=== PATIENT | female | born 1980 | race Hispanic/Latino ===

== ENCOUNTER 2017-05-01 02:08 | Inpatient (IN) | payer MEDICAID, OTHER, SELFPAY ==
[2017-05-01] MEDS ORDERED: Lidocaine 1% (PF) 30 ML VIAL ONE (02:29)
[2017-05-01] MEDS ORDERED: LR / Pitocin 40 units/1000 ml 1,000 ML ONE (02:29)
[2017-05-01] MEDS ORDERED: Promethazine HCl 25 MG/ML VIAL IM PRN (02:36)
[2017-05-01] MEDS ORDERED: Acetaminophen 500 MG TAB PO PRN (02:36)
[2017-05-01] MEDS ORDERED: Ondansetron HCl/PF 4 MG/2 ML Vial IVP PRN (02:36)
--- NOTE | 2017-05-01 02:48 | PDOC.EVN ---
Event Note - Event Note Event Note: History and Physical Patient of the cliniic, first accessed by Gerard Caballero (Resident). HPI: Patient is a 36 YO at 38 weeks and 2 days with spont onset of labor. SROM at 0245. Admitted at 6cm. Review of systems: negative except as per HPI Past medical HX: neg Social: negative OB HX: pror SVDs, GDM- diet controlled with this Physical exam: Vitals wnl EFW 7# CX 6//c/+1 Monitor: Cat 1 Assessment: GDM, active labor at term Plan: 1. Check Dstick 2. Await delivery
[2017-05-01 02:55] LABS: Hemoglobin 12.2 g/dL (12.0-16.0); Mean Corpuscular HGB CONC 32.5 g/dL (32.0-36.0); Mean Corpuscular Hemoglobin 26.1 pg (27.0-31.0); Mean Corpuscular Volume 80.4 fl (81.0-99.0); Platelet Count 247 thou/uL (130-400); Red Blood Cell (RBC) Count 4.69 mill/uL (4.20-5.40); White Blood Cell (WBC) Count 11.3 thou/uL (4.8-10.8)
[2017-05-01 03:04] VITALS: BMI 34.5
--- NOTE | 2017-05-01 03:15 | PDOC.OPDEL ---
OB Operative/Delivery Note Delivery Dr/Surgeon: Chanel/Reed/Farooq Assist: Farooq Pre-Delivery Diagnosis: active labor Procedure/Post Delivery Dx: spontaneous vaginal delivery Weeks gestation: 38 Anesthesia: local - Additional Findings/Plan Placenta delivered: spontaneous Repaired Obstetrical Laceration: 2nd degree (Repaired by Chanel under my supervision. 2-0 chroic used, under 10ml local anesthesia.) Estimated blood loss: 200 Compilations/Other Findings: Vigorous female. No nuchal cord. Counts correct. No resus needed. Post delivery plan: routine recovery
[2017-05-01 03:31] LABS: HBSAg Index 0.22 S/CO (0-0.99); Hep B Surf Ag Non-Reactive S/CO (NonReactive)
[2017-05-01] MEDS ORDERED: Benzocaine/Menthol 20-0.5% 60 ML CAN TOP PRN (05:35)
[2017-05-01] MEDS ORDERED: Bisacodyl 10 MG SUPP PR PRN (05:35)
[2017-05-01] MEDS ORDERED: Milk Of Magnesia 30 ML UDCUP PO PRN (05:35)
[2017-05-01] MEDS ORDERED: LR / Pitocin 40 units/1000 ml 1,000 ML IV SCH (05:35)
[2017-05-01] MEDS ORDERED: Adacel (T-DAP) 0.5 ML VIAL IM ONE (05:35)
[2017-05-01] MEDS ORDERED: Lanolin Ointment 7 GM TUBE TOP PRN (05:35)
[2017-05-01] MEDS: Ibuprofen 800 MG TAB PO SCH ×3 (05:51→22:08)
[2017-05-01] MEDS: Lactated Ringer's 1,000 ML IV SCH ×2 (05:52→17:13)
[2017-05-01 06:40] LABS: Syphilis Antibody Nonreactive (Nonreactive)
--- NOTE | 2017-05-01 07:16 | PDOC.PP ---
Post Progress Note Post Day #: 0 Subjective: Resting. Doing well. PO intake tolerated: yes Flatus: yes Ambulation: yes Vital Signs (12 hours) Temp Pulse Resp BP 05/01/17 06:27 97.5 F L 63 18 115/63 05/01/17 05:23 98.0 F 61 18 113/70 05/01/17 02:40 97.5 F L 65 22 H Weight Weight 189 lb - Physical Examination General: NAD Cardiovascular: no m/r/g Abdominal: + bowel sounds Neurological: no gross focal deficits Psychiatric: A&Ox3, normal affect Result Diagrams: 05/01/17 02:40 Additional Labs: Post Labs Hep Bs Antigen Non-Reactive S/CO (NonReactive) 05/01/17 02:40 (1) Second degree perineal laceration Code(s): O70.1 - SECOND DEGREE PERINEAL LACERATION DURING DELIVERY Status: Acute (2) Gestational diabetes mellitus, delivered Code(s): O24.429 - GESTATIONAL DIABETES MELLITUS IN CHILDBIRTH, UNSP CONTROL Status: Acute (3) Spontaneous Vaginal Delivery Code(s): O80 - ENCOUNTER FOR FULL-TERM UNCOMPLICATED DELIVERY Status: Acute - Assessment/Plan Doing well s/p Precipitous at approx 0300 today. Routine care for now. HX GDM, diet controlled. Will need GTT in 6 weeks.
[2017-05-01] MEDS: Docusate Calcium (SURFAK) 240 MG CAP PO SCH ×2 (07:36→22:09)
[2017-05-01] MEDS: Prenatal Vitamin 1 TAB PO SCH (07:36)
[2017-05-01] MEDS: HYDROcodone/Acetaminophen 5/325 mg Tablet PO PRN ×2 (07:36→11:44)
--- NOTE | 2017-05-01 08:35 | PDOC.PP ---
Post Progress Note Post Day #: 1 Subjective: 36 yo -->3 @ 38.2 wks now s/p on 05/01 @ ~ 0300 with meconium stained fluid and a second degree laceration, repaired and hemostatic. Endorses pain this morning. States she is voiding on her own and ambulating to the bathroom. She was about to eat breakfast this morning. Denies passing flatus. Flatus: no Ambulation: yes Vital Signs (12 hours) Temp Pulse Resp BP 05/01/17 07:45 97.9 F 61 20 116/66 05/01/17 06:27 97.5 F L 63 18 115/63 05/01/17 05:23 98.0 F 61 18 113/70 05/01/17 02:40 97.5 F L 65 22 H Weight Weight 85.729 kg - Physical Examination General: NAD Cardiovascular: no m/r/g, RRR Respiratory: clear to auscultation bilaterally Abdominal: + bowel sounds, lochia, no distention Neurological: no gross focal deficits Psychiatric: A&Ox3, normal affect Result Diagrams: 05/01/17 02:40 Additional Labs: Post Labs Hep Bs Antigen Non-Reactive S/CO (NonReactive) 05/01/17 02:40 (1) Spontaneous Vaginal Delivery Code(s): O80 - ENCOUNTER FOR FULL-TERM UNCOMPLICATED DELIVERY Status: Acute Comment: 36 yo -->3 at 38.2wks now s/p to a TAGA female, at 0249 on , positive mec, unknown GBS. No indication at this time for antibiotics. Continue routine care. Will encourage PO intake, ambulation. Voiding adequately. (2) Gestational diabetes mellitus, delivered Code(s): O24.429 - GESTATIONAL DIABETES MELLITUS IN CHILDBIRTH, UNSP CONTROL Status: Acute Comment: Diet controlled. Will monitor blood glucose. Prior Hba1c 5.8% (3) Second degree perineal laceration Code(s): O70.1 - SECOND DEGREE PERINEAL LACERATION DURING DELIVERY Status: Acute Comment: Repaired. Hemostatic. Will continue to monitor.
[2017-05-01] MEDS ORDERED: Acetaminophen 325 MG TAB PO PRN (10:40)
[2017-05-01] MEDS: Ferrous Sulfate 325 MG TAB PO SCH (17:13)
[2017-05-02] MEDS: HYDROcodone/Acetaminophen 5/325 mg Tablet PO PRN (02:25)
[2017-05-02 06:00] LABS: Hemoglobin 10.4 g/dL (12.0-16.0); Mean Corpuscular HGB CONC 31.5 g/dL (32.0-36.0); Mean Corpuscular Hemoglobin 25.9 pg (27.0-31.0); Mean Corpuscular Volume 82.3 fl (81.0-99.0); Mean Platelet Volume 7.9 fL (7.4-10.4); Platelet Count 229 thou/uL (130-400); RBC Distribution Width 14.9 % (11.5-14.5); Red Blood Cell (RBC) Count 4.03 mill/uL (4.20-5.40); White Blood Cell (WBC) Count 9.7 thou/uL (4.8-10.8)
[2017-05-02] MEDS: Ibuprofen 800 MG TAB PO SCH ×2 (06:40→13:59)
[2017-05-02] MEDS: Lactated Ringer's 1,000 ML IV SCH (06:41)
[2017-05-02 08:32] VITALS: BP 106/58; TEMP 97.7
[2017-05-02] MEDS: Ferrous Sulfate 325 MG TAB PO SCH (08:55)
[2017-05-02] MEDS: Docusate Calcium (SURFAK) 240 MG CAP PO SCH (08:56)
[2017-05-02] MEDS: Prenatal Vitamin 1 TAB PO SCH (08:56)
[2017-05-02] MEDS ORDERED: FLU VACC QS2017-18 36 mo. & older 0.5 ML SYRINGE IM ONE (09:00)
== END 2017-05-02 15:45 | disposition home or self-care (01) | DRG 775 ==
LOC: L&D/OP 02:08 → L&D 02:35 → 3SW 05:20
PROVIDERS: ADMIT Obstetrics & Gynecology; ATTEND Obstetrics & Gynecology
PROC: 10E0XZZ Delivery of Products of Conception, External Approach (ICD-10-PCS; principal; 2017-05-01)
PROC: 0KQM0ZZ Repair Perineum Muscle, Open Approach (ICD-10-PCS; 2017-05-01)
DX: O24.420 Gestational diabetes mellitus in childbirth, diet controlled (principal); O70.1 Second degree perineal laceration during delivery; Z37.0 Single live birth; Z3A.38 38 weeks gestation of pregnancy
CPT/HCPCS: 36415; 85027; 86780; 87340; 99285; J2001

== ENCOUNTER 2019-12-02 00:19 | Observation (INO) | payer OTHER, SELFPAY ==
[2019-12-02 01:06] LABS: #Eosinphils 0.1 thou/uL (0.0-0.7); #Lymphocytes 2.4 thou/uL (1.20-3.40); #Monocytes 0.5 thou/uL (0.11-0.59); #Neutrophils 6.2 thou/uL (1.40-6.50); %Basophils 0.5 % (0.0-1.0); %Eosinophils 1.1 % (0.0-10.0); %Lymphocytes 25.8 % (21.0-51.0); %Monocytes 5.4 % (0.0-10.0); %Neutrophils 67.2 % (42.0-75.0); Hemoglobin 13.4 g/dL (12.0-16.0); Mean Corpuscular HGB CONC 33.6 g/dL (32.0-36.0); Mean Corpuscular Hemoglobin 27.7 pg (27.0-31.0); Mean Corpuscular Volume 82.5 fL (78.0-98.0); Mean Platelet Volume 7.1 fL (7.4-10.4); Platelet Count 276 thou/uL (130-400); RBC Distribution Width 12.5 % (11.5-14.5); Red Blood Cell (RBC) Count 4.81 mill/uL (4.20-5.40); White Blood Cell (WBC) Count 9.2 thou/uL (4.8-10.8)
[2019-12-02] MEDS ORDERED: Acetaminophen 500 MG TAB ONE (02:10)
[2019-12-02 02:16] LABS: Blood, Urine Large (Negative); Protein, Urine (Dipstick) > or equal to 300 mg/dL (Neg-Trace)
[2019-12-02 02:35] LABS: Clarity Hazy (Clear); Leukocyte Unable to Interpret (Negative); Specific Gravity, Urine 1.018 (1.002-1.036); pH, Urine 6.8 (5.0-9.0)
[2019-12-02 02:38] LABS: Bilirubin Moderate (Negative)
[2019-12-02 02:39] LABS: Glucose, Urine (Dipstick) Unable to Interpret mg/dL (Negative)
[2019-12-02 02:41] LABS: Nitrite Unable to Interpret (Negative)
[2019-12-02 02:42] LABS: Ketone, Urine Moderate mg/dL (Negative)
[2019-12-02 02:50] LABS: RBC/HPF Greater than 50 HPF (0-3)
[2019-12-02 02:52] LABS: Bacteria/HPF 1+ HPF (None Seen); Squamous Epithelial 0-3 HPF (0-3)
[2019-12-02] MEDS ORDERED: Misoprostol 200 MCG TAB VAG SCH (03:00)
[2019-12-02] MEDS ORDERED: Acetaminophen/Codeine 30-300mg Tablet PO PRN ×2 (04:12→05:07)
[2019-12-02] MEDS ORDERED: cefTRIAXone\\ROCEPHIN 2 GM in Sodium Chloride 0.9% 100 ML IVPB SCH (04:15)
[2019-12-02] MEDS ORDERED: Lactated Ringer's 1,000 ML IV SCH (04:15)
[2019-12-02] MEDS ORDERED: Misoprostol 200 MCG TAB ONE (04:22)
[2019-12-02 04:27] LABS: #Lymphocytes 2.7 thou/uL (1.20-3.40); #Monocytes 0.4 thou/uL (0.11-0.59); #Neutrophils 7.4 thou/uL (1.40-6.50); %Basophils 0.2 % (0.0-1.0); %Eosinophils 0.2 % (0.0-10.0); %Lymphocytes 25.4 % (21.0-51.0); %Monocytes 4.1 % (0.0-10.0); %Neutrophils 70.1 % (42.0-75.0); Hemoglobin 10.9 g/dL (12.0-16.0); Mean Corpuscular HGB CONC 32.9 g/dL (32.0-36.0); Mean Corpuscular Volume 82.1 fL (78.0-98.0); Mean Platelet Volume 7.2 fL (7.4-10.4); Platelet Count 282 thou/uL (130-400); RBC Distribution Width 12.3 % (11.5-14.5); Red Blood Cell (RBC) Count 4.05 mill/uL (4.20-5.40); White Blood Cell (WBC) Count 10.6 thou/uL (4.8-10.8)
[2019-12-02] MEDS ORDERED: Fentanyl 100 MCG/2 ML VIAL ONE ×2 (04:31→05:28)
[2019-12-02] MEDS ORDERED: Midazolam HCl 2 mg/2 ml Vial ONE (04:31)
--- NOTE | 2019-12-02 04:48 | HP ---
TIME: 040, the time of evaluation was around 0345. REASON FOR ADMISSION: Incomplete with heavy vaginal bleeding and syncopal like episode. LOCATION: Currently in ER bed 11. HISTORY OF PRESENT ILLNESS: This is a 39-year-old G4, P3 with 3 vaginal deliveries in the past, who states that she may have been anywhere from 10 to 12 weeks , but had not yet seen a provider for this . She comes in now for vaginal bleeding. As I was in Labor and Delivery attending to other acute patients, I requested Cytotec to be given to see if that could complete the process. I was called down stat about 10 minutes prior to my arrival in the ER because after the Cytotec had been placed, the patient stated that she had a large pelvic cramp and then the patient had an episode of bradycardia and syncopal episode. This was followed by questionable seizure activity. PAST MEDICAL HISTORY: No diabetes, no asthma. PAST SURGICAL HISTORY: Noncontributory. OB HISTORY: She has had three vaginal deliveries in the past. PHYSICAL EXAMINATION: Patient is diaphoretic and pale, but in no acute distress. She is oriented to time and place. I performed a bimanual exam and I was able to draw out about 150 to 200 mL of clot. Her cervix still feels to be open, about 1 cm by my finger palpation. I did see some Cytotec tablets in the clots that were expelled. LABORATORY DATA: Initial H and H were 13 and 39. Ultrasound revealed that she had some echogenic material in the uterus compatible with retained products. This was before the Cytotec was placed. ASSESSMENT: This is a patient with incomplete AB with a questionable bradycardic episode and possible syncope of unknown etiology. The patient states that she had a large pelvic cramp and then felt faint. This may have been vagally mediated from the cytotec uterine cramping.. PLAN: 1. I have discussed a D and C with the patient to make sure that there is no further bleeding. 2. We will keep the patient for inpatient observation, follow H and H. 3. Unsure what this bradycardic episode was, but it may have been a pain response to the cramp from Cytotec. I obtained informed consent in bhutanese. Job ID: [id number] MTDD
[2019-12-02] MEDS ORDERED: cefTRIAXone\\ROCEPHIN 1 GM VIAL ONE (04:53)
[2019-12-02] MEDS ORDERED: Ibuprofen 800 MG TAB PO PRN (05:09)
--- NOTE | 2019-12-02 05:12 | PDOC.BPN ---
- Brief Progress Note BRIEF OP NOTE D&C complete. POC seen expelling via dilated CX OS. No complications. Last HCT was 33 from 39 See D&C Dictation
--- NOTE | 2019-12-02 07:04 | OP ---
DATE OF PROCEDURE: 12/02/2019 PREOPERATIVE DIAGNOSES: 1. Suspected incomplete 1st trimester . 2. Syncopal episode in the emergency department. POSTOPERATIVE DIAGNOSES: 1. Suspected incomplete 1st trimester . 2. Status post dilation and curettage, and evacuation of clots/products of conception. PROCEDURE: 1. Suction dilation and curettage. 2. Evacuation of clots through the cervical os, which was dilated. FILTER HELPER: None. ANTIBIOTICS: Rocephin 1 g IV. FINDINGS: 1. There were active clots being passed in the vagina during the patient's prep. 2. When I placed the Graves bivalve speculum into the vagina, the cervix was dilated and there were products of conception seen through the cervical os. Next, these products were evacuated with ring forceps and sent to pathology. 3. D and C was then done for 3 passes with no further tissue extracted, but scant amount. The EBL was about 200 mL, which represented the clots that were in the vagina and through the cervix. The EBL during the D and C itself was minimal. IV FLUIDS: About 200 mL crystalloid. COMPLICATIONS: None. COUNTS: Correct. PATHOLOGY: Uterine contents. DISPOSITION: To recovery room. DESCRIPTION OF PROCEDURE: After proper informed consent was explained to the patient, she was taken to OR D for her D and C. She was placed under general endotracheal anesthesia and she was positioned in [facility]. All pressure points were adequately padded and supported. The patient's vulva and vagina were prepped and draped in the usual sterile fashion. It is during this vaginal prep that clots were expressed from the vagina. I then placed a [employer] bivalve speculum to the vagina and I saw that the cervix was dilated grossly with a lot of clot and products of conception grossly visible being extruded. These were evacuated by rings and sent to pathology. After these clots and tissue were evacuated, I performed the D and C with a #8 curved plastic curette in the typical fashion. No evidence of perforation was found. A scant amount of tissue was removed from the uterine cavity. Noting hemostasis and no further bleeding, we stopped the procedure. The D and C procedure itself was only about 1 to 2 minutes. We then took her down from the dorsal lithotomy position where we will follow her for the day. It is important to note that her last hematocrit had dropped from 39 to 33. We will check another one at about 3 p.m. Job ID: [id number]
--- NOTE | 2019-12-02 07:47 | ULT ---
PRELIMINARY REPORT/[facility]/EMERGENCY AFTER HOURS PROCEDURE EXAM: US Pelvis, Complete. CLINICAL HISTORY: HX: VERY HEAVY VAG BLEEDING AT APPROX 12WKS. SEE NOTES ON LAST IMAGE. THANKS TECHNIQUE: Transvaginal and transabdominal pelvic ultrasound (complete) with image documentation. COMPARISON: None provided. FINDINGS: ENDOMETRIUM: Appears thickened at 22 mm demonstrating increased flow. UTERUS/CERVIX: Normal size and contour. No fibroid detected. Measures 14.2 x 5.5 x 6.5 cm. The cervical os appears to be open RIGHT OVARY: Normal follicles. No adnexal mass. Normal blood flow. Measures 1.8 x 1.4 x 1.6 cm LEFT OVARY: Normal follicles. No adnexal mass. Normal blood flow. Measures 1.8 x 1.6 x 3.4 cm FREE FLUID: No free fluid. IMPRESSION: Thickened vascular endometrium with an open cervical os ELECTRONICALLY SIGNED BY: Tino Calzada MD Dec 02, 2019 2:46:42 AM CDT This report is intended for review by the ordering physician only, in accordance of law. If you recei ve this report in error, please call [facility] at [phone]. FINAL REPORT US Pelvic Transvag History: Pelvic pain. Vaginal bleeding. 12 weeks Comparison: None. Findings and Impression: Concordant with the preliminary report. No intrauterine chandu oh Transcribed Date/Time: 12/02/2019 7:50 AM
--- NOTE | 2019-12-02 08:18 | PDOC.BPN ---
- Brief Progress Note Pulse 78 per RN now RN has called Dr Bundy about a syncope episode. I am, here as well in check out, Stat HH ordered now
[2019-12-02 08:37] LABS: Hemoglobin 8.9 g/dL (12.0-16.0)
[2019-12-02 09:22] VITALS: BMI 29.9
[2019-12-02] MEDS ORDERED: PROPOFOL 200 MG/20 ML VIAL ONE (09:26)
[2019-12-02] MEDS ORDERED: Succinylcholine Chloride 20 MG/ML 10 ml SYRINGE FS ONE (09:26)
[2019-12-02] MEDS ORDERED: Ondansetron PF 4 MG/2 ML Vial ONE (09:26)
[2019-12-02] MEDS ORDERED: Lidocaine 1% PF 5 ML VIAL ONE (09:26)
[2019-12-02 14:28] LABS: Hemoglobin 7.9 g/dL (12.0-16.0)
[2019-12-02] MEDS: Lactated Ringer's 1,000 ML IV SCH (14:58)
[2019-12-02 15:04] LABS: SARS-CoV-2 MS2 Positive; SARS-CoV-2 N Gene Negative; SARS-CoV-2 S Gene Negative; SARS-CoV-2 by NAA Not Detected (NotDetected); SARS-CoV-2 orf1ab Negative
[2019-12-02 17:16] VITALS: TEMP 98.2
[2019-12-02 17:22] LABS: Hemoglobin 8.1 g/dL (12.0-16.0)
[2019-12-02 17:33] VITALS: BP 118/74
--- NOTE | 2019-12-02 17:48 | PDOC.EVN ---
Event Note - Event Note Event Note: Feeling better, no further dizziness, no ESCALANTE. VSS, AF. BP= 118/74, P= 82. No significant vaginal bleeding. Hgbs this PM; 7.9 to 8.1. Plan: DC home with Precautions and and with Fe. [facility] in 2 weeks.
== END 2019-12-02 18:20 | disposition home or self-care (01) ==
LOC: ERS 00:19 → 3SW 06:48
PROVIDERS: ADMIT Obstetrics & Gynecology; ATTEND Obstetrics & Gynecology
PROC: 10A08ZZ Abortion of Products of Conception, Via Natural or Artificial Opening Endoscopic (ICD-10-PCS; principal; 2019-12-02)
DX: O03.4 Incomplete spontaneous abortion without complication (principal)
CPT/HCPCS: 36415; 36416; 51702; 76856; 81003; 81015; 84702; 85025; 86850; 86900; 86901; 87635; 88305; 93005; 96360; 96361; G0378; J0696; J2250; J2405; J2704; J3010; U0003

== ENCOUNTER 2019-12-05 21:29 | Emergency (ER) | payer OTHER, SELFPAY ==
[2019-12-05 22:14] LABS: Bilirubin Negative (Negative); Blood, Urine 1+ (Negative); Clarity Clear (Clear); Glucose, Urine (Dipstick) Normal (Negative); Ketone, Urine Negative (Negative); Leukocyte Negative Leu/uL (Negative); Nitrite Negative (Negative); Protein, Urine (Dipstick) Negative (Neg-Trace); RBC/HPF 0-3 HPF (0-3); Squamous Epithelial 0-3 HPF (0-3); Urobilinogen Normal mg/dL (Less than 2); WBC/HPF 0-3 HPF (0-3); pH, Urine 6.5 (5.0-9.0)
[2019-12-05 22:15] LABS: Bacteria/HPF 1+ HPF (None Seen); Specific Gravity, Urine 1.004 (1.002-1.036)
[2019-12-05] MEDS ORDERED: Sodium Chloride 0.9% 100 ML ONE (22:22)
[2019-12-05] MEDS ORDERED: Piperacillin/Tazobactam 3.375 GM VIAL ONE (22:22)
[2019-12-05] MEDS ORDERED: diphenhydrAMINE 50 MG/ML VIAL ONE (22:22)
[2019-12-05] MEDS ORDERED: Ketorolac Tromethamine 30 MG/ML VIAL ONE (22:22)
[2019-12-05] MEDS ORDERED: Metoclopramide HCl 10 MG/2 ML VIAL ONE (22:22)
[2019-12-05] MEDS ORDERED: Metoclopramide 10 MG/10 ML UDCUP ONE (22:22)
--- NOTE | 2019-12-05 22:27 | RAD ---
XR Chest 1 View Portable HISTORY: Weakness, headache COMPARISON: None FINDINGS: The heart size is normal. The lungs are well expanded without focal areas of consolidation, pneumothorax or pleural effusions. IMPRESSION: No radiographic evidence of acute cardiopulmonary process.
[2019-12-05 22:34] LABS: ALT (SGPT) 36 U/L (8-55); AST (SGOT) 27 U/L (5-34); Albumin 4.1 g/dL (3.5-5.0); Alkaline Phosphatase 65 U/L (40-110); Anion Gap 13 mmol/L (10-20); BUN (Urea Nitrogen) 6 mg/dL (7.0-18.7); Bilirubin, Total 0.2 mg/dL (0.2-1.2); Calc. Creatinine Clearance 0 mL/min (70-130); Calcium 8.6 mg/dL (7.8-10.44); Carbon Dioxide 22 mmol/L (22-29); Chloride 111 mmol/L (98-107); Estimated GFR-MDRD 81; Glucose 121 mg/dL (70-105); Magnesium 2.1 mg/dL (1.6-2.6); Protein, Total 7.1 g/dL (6.0-8.3); Sodium 142 mmol/L (136-145)
[2019-12-05 22:42] LABS: #Eosinphils 0.1 thou/uL (0.0-0.7); #Lymphocytes 2.3 thou/uL (1.20-3.40); #Monocytes 0.4 thou/uL (0.11-0.59); #Neutrophils 5.1 thou/uL (1.40-6.50); %Basophils 0.4 % (0.0-1.0); %Eosinophils 1.7 % (0.0-10.0); %Lymphocytes 28.5 % (21.0-51.0); %Monocytes 5.1 % (0.0-10.0); %Neutrophils 64.3 % (42.0-75.0); Hemoglobin 8.4 g/dL (12.0-16.0); Mean Corpuscular HGB CONC 32.6 g/dL (32.0-36.0); Mean Corpuscular Hemoglobin 27.1 pg (27.0-31.0); Mean Corpuscular Volume 83.3 fL (78.0-98.0); Platelet Count 299 thou/uL (130-400); RBC Morphology Normal; Red Blood Cell (RBC) Count 3.11 mill/uL (4.20-5.40)
--- NOTE | 2019-12-05 23:33 | ULT ---
TRANSABDOMINAL AND TRANSVAGINAL PELVIC ULTRASOUND WITH GRAYSCALE, COLOR-FLOW AND SPECTRAL DOPPLER MARK GING: HISTORY:Possible retained products of conception, pelvic pain, light vaginal spotting FINDINGS: Uterus: 12.3 x 4.3 x 6.9cm Endometrium: 8 mm in thickness Right ovary: 1.6 x 2.1 x 1.7cm Left ovary: 2.5 x 2 x 1.9 cm No uterine mass or endometrial fluid or intrauterine gestational sac is seen. Flow is demonstrated to both ovaries. No adnexal mass or free fluid in the cul-de-sac is identified. IMPRESSION: Unremarkable exam. Recommendation: Correlation with serial serum beta hCG levels and follow-up ultrasound is recommended
== END 2019-12-06 00:02 | disposition home or self-care (01) ==
LOC: ERS 21:29
DX: D64.9 Anemia, unspecified (principal); N39.0 Urinary tract infection, site not specified; Z79.899 Other long term (current) drug therapy
CPT/HCPCS: 36415; 71045; 76856; 80053; 81003; 81015; 83735; 84484; 85025; 86850; 86900; 86901; 87040; 87086; 87149; 93005; 93976; 94760; 96365; 96368; 96375; J1200; J1885; J2543; J2765; J3490

== ENCOUNTER 2020-06-23 17:20 | Emergency (ER) | payer MEDICAID, OTHER, SELFPAY ==
[2020-06-23 18:59] LABS: #Basophils 0.1 thou/uL (0.0-0.2); #Lymphocytes 2.1 thou/uL (1.20-3.40); #Monocytes 0.4 thou/uL (0.11-0.59); #Neutrophils 4.7 thou/uL (1.40-6.50); %Basophils 0.9 % (0.0-1.0); %Eosinophils 0.6 % (0.0-10.0); %Lymphocytes 28.5 % (21.0-51.0); %Monocytes 4.9 % (0.0-10.0); %Neutrophils 65.2 % (42.0-75.0); Hemoglobin 13.1 g/dL (12.0-16.0); Mean Corpuscular HGB CONC 32.7 g/dL (32.0-36.0); Mean Corpuscular Hemoglobin 26.5 pg (27.0-31.0); Mean Platelet Volume 7.6 fL (7.4-10.4); Platelet Count 235 thou/uL (130-400); RBC Distribution Width 13.1 % (11.5-14.5); Red Blood Cell (RBC) Count 4.95 mill/uL (4.20-5.40); White Blood Cell (WBC) Count 7.3 thou/uL (4.8-10.8)
[2020-06-23 19:11] LABS: BHCG - Serum POSITIVE (NEGATIVE); Pregs Control Background? CLEAR/WHITE (CLR/WHITE); Pregs Control Bar Appear? YES (CONTROL BAR)
[2020-06-23 19:15] LABS: ALT (SGPT) 93 U/L (8-55); AST (SGOT) 69 U/L (5-34); Albumin 4.3 g/dL (3.5-5.0); Alkaline Phosphatase 81 U/L (40-110); Anion Gap 15 mmol/L (10-20); BUN (Urea Nitrogen) 6 mg/dL (7.0-18.7); Bilirubin, Total 0.4 mg/dL (0.2-1.2); Calc. Creatinine Clearance 0 mL/min (70-130); Carbon Dioxide 21 mmol/L (22-29); Chloride 108 mmol/L (98-107); Globulin 3.8 g/dL (2.4-3.5); Glucose 99 mg/dL (70-105); Potassium 3.7 mmol/L (3.5-5.1); Protein, Total 8.1 g/dL (6.0-8.3); Sodium 140 mmol/L (136-145)
--- NOTE | 2020-06-23 19:16 | ULT ---
FIRST TRIMESTER OBSTETRICAL ULTRASOUND INDICATION: Positive home test with vaginal bleeding TECHNIQUE: Grayscale, M-mode Doppler, color Doppler and spectral Doppler images were obtained. Shahab godoy is focused on the clinical indication. Transabdominal and transvaginal exam was performed. COMPARISON: No relevant prior studies available. FINDINGS: Uterus: The uterus measured 8.9 x 3.7cm.The endometrial stripe measured 7.5 mm.r small hypoechoic density see n along the posterior aspect of the right uterine body measuring approximately 9 mm suspicious for a small subserosal fibroid. Intrauterine gestation: None. Yolk Sac:Not applicable Pole :Not applicable heart rate: Not applicable bpm. Subchorionic Hemorrhage: Not applicable BIOMETRY: Not applicable Ovaries: RIGHT OVARY: 1.7 x 2.4 x 1.1 cm. Mass: None. Flow: Normal LEFT OVARY: 2.8 x 3.0 x 1.7 cm. Mass: None. Flow: Normal CUL-DE-SAC: No free fluid IMPRESSION: 1. No intrauterine gestation identified. Findings are consistent with a of undetermined loc ation. Recommend correlation with serum beta-hCG levels. Continued clinical and sonographic follow-up is recommended. 2. Suspected hypoechoic subserosal fibroid involving the posterior uterine body.
== END 2020-06-23 21:17 | disposition home or self-care (01) ==
LOC: ERS 17:20
DX: O03.9 Complete or unspecified spontaneous abortion without complication (principal)
CPT/HCPCS: 36415; 76856; 80053; 84702; 84703; 85025; 86900; 86901

== ENCOUNTER 2023-04-15 09:50 | Outpatient (CLI) | payer OTHER | END 2023-04-15 09:51 | disposition home or self-care (01) | LOC: BICULT 09:50 | PROVIDERS: ATTEND Nurse Practitioner Women's Health | DX: R10.2 Pelvic and perineal pain (principal) | CPT/HCPCS: 76856 ==